=== PATIENT | female | born 1970 | race Hispanic/Latino ===

== ENCOUNTER → 2018-11-05 | Day surgery (SDC) | payer OTHER ==
--- NOTE | 2018-11-04 15:30 | Diagnostic Imaging Report ---
EXAMINATION: CHEST 2 VIEWS INDICATION: Preop for left foot surgery ^MD ORDER ^[id number] ^1510 ^PRE ADMIT COMPARISON: None FINDINGS: TUBES and LINES: None. LUNGS: Lungs are well inflated. Lungs are clear. There is no evidence of pneumonia or pulmonary edema. PLEURA: No pleural effusion or pneumothorax. HEART AND MEDIASTINUM: The cardiomediastinal silhouette is unremarkable. BONES AND SOFT TISSUES: No acute osseous lesion. Soft tissues are unremarkable. UPPER ABDOMEN: No free air under the diaphragm. IMPRESSION: No acute thoracic abnormality. Signed by: Dr. Brooks Nelson M.D. on 11/04/2018 3:27 PM
[~2018-11-05] MED LIST: ACETAMINOPHEN 1000 MG/100 ML 100 ML IV ONE; BUPIVACAINE HCL 0.5% INJ 30 ML VIAL INJ ONE; CEFAZOLIN SOD 1 GM/NS 50ML 50 ML IV ONE; DEXAMETHASONE SOD PHOS INJ 4 MG/ML VIAL ONE; FENTANYL CITRATE/PF 100MCG/2 ML INJ ONE; KETOROLAC TROMETHAMINE 30 MG/ML VIAL ONE; LIDOCAINE HCL 2% LOCAL INJ 5 ML SDV VIAL INJ ONE; MIDAZOLAM HCL 2 MG/2 ML VIAL ONE; NAPROXEN250 MG PO; PROPOFOL IV EMULSION 10 MG/ML 20 ML VIAL ONE; SEVOFLURANE INHAL SOLN 250 ML PEN BTL ONE
--- OUTSIDE RECORDS SUMMARY | 2018-11-05 05:08 | XMS REPORT ---
Author Author [facility] Address Unknown Phone Unavailable Care Team Providers Care Quality Assurance Director Name Role Phone Giovanna GAMINO Unavailable Unavailable Problems This patient has no known problems. Allergies, Adverse Reactions, Alerts This patient has no known allergies or adverse reactions. Medications This patient has no known medications. Results Test Description Test Time Test Comments Text Results Atomic Results Result Comments CHEST 2 VIEWS 2018-11-04 15:27:00 [place] [id number] Patient Name: BOOKER WARD MR #: [id number] : 1970 Age/Sex: 48/F Req #: [id number] Adm Physician: Ordered by: Giovanna GAMINO DPM Report #: [id number] Location: OR Room/Bed: Procedure: [id number] DX/CHEST 2 VIEWS Exam Date: 11/04/18 Exam Time: 1510 REPORT STATUS: Signed EXAMINATION: CHEST 2 VIEWS INDICATION: Preop for left foot surgery MD ORDER [id number] 1510 PRE ADMIT COMPARISON: None FINDINGS: TUBES and LINES: None. LUNGS: Lungs are well inflated. Lungs are clear. There is no evidence of pneumonia or pulmonary edema. PLEURA: No pleural effusion or pneumothorax. HEART AND MEDIASTINUM: The cardiomediastinal silhouette is unremarkable. BONES AND SOFT TISSUES: No acute osseous lesion. Soft tissues are unremarkable. UPPER ABDOMEN: No free air under the diaphragm. IMPRESSION: No acute thoracic abnormality. Signed by: Dr. Brooks Nelson M.D. on 11/04/2018 3:27 PM Dictated By: BROOKS NELSON MD, MD 1527 Transcribed By: MADELAINE on 11/04/18 152 COPY TO: Giovanna GAMINO DPM
[2018-11-05 09:15] VITALS: BP 148/96
--- NOTE | 2018-11-05 11:30 | Operative Report ---
DATE OF PROCEDURE: 11/05/2018 SURGEON: Jacques Cruz DPM PREOPERATIVE DIAGNOSES: 1. Left hallux valgus. 2. Left heel spur with plantar fasciitis. POSTOPERATIVE DIAGNOSES: 1. Left hallux valgus. 2. Left heel spur with plantar fasciitis. PLANNED PROCEDURE: 1. Left Mingo bunionectomy with 1st metatarsal osteotomy and internal fixation. 2. Excision of heel spur with plantar fasciotomy. SURGEON: Melissa Cedeno DPM (Charley). FINISH MIXER: Jacques Cruz DPM. ANESTHESIA: General with a postoperative block consisting of 20 mL 0.5% Marcaine plain mixed with 2 mL of dexamethasone phosphate. HEMOSTASIS: Pneumatic thigh tourniquet set at 350 mmHg for a total time approximately 45 minutes. MATERIALS: Two 2.0 mm cortical bone screws, one measuring 12 mm, one measuring 14 mm 2-0 Vicryl, 3-0 Vicryl, 4-0 Prolene. ESTIMATED BLOOD LOSS: Less than 10 mL. PATHOLOGY: None. PROCEDURE NOTE: The patient was seen in the preop waiting room, where the correct procedure and site was identified. The patient was brought to the operating room, placed on the operating table in the supine position. General anesthesia was initiated. At this time, a well-padded pneumatic tourniquet was placed about the patient's left thigh. The left foot, ankle, and leg were then scrubbed, prepped, and draped in the usual aseptic manner. The left foot, ankle, and leg were exsanguinated with an Esmarch bandage and the pneumatic thigh tourniquet was inflated to 350 mmHg for a total time of approximately 45 minutes. Attention was directed to the dorsal medial aspect of the patient's left foot 1st metatarsophalangeal joint where a 5 cm curvilinear incision was made directly over the joint. It was medial to the extensor hallucis longus tendon. Incision was carried through the subcutaneous tissue, it from deeper underlying structures. All vital neurovascular structures were identified, retracted medially and laterally, and all bleeders were cauterized or ligated as deemed necessary. Next, through the same incision a full lateral release was performed consisting of the deep transverse metatarsal ligament, lateral collateral ligament as well as the fibular sesamoidal ligament. The hallux was then put through range of motion, found to be functioning in a more proper anatomic alignment. Next, attention was directed to the back of the 1st metatarsal head where an inverted-L capsulotomy was performed to allow for good visualization of the 1st metatarsal head. Next, utilizing a guidewire placed medial to lateral, Chevron osteotomy was performed with a dorsal wing longer to allow for proper fixation. The capital fragment was transposed laterally approximately 3 to 5 mm and impacted onto the shaft of the 1st metatarsal. It was temporarily fixated with a guidewire, permanently fixated utilizing techniques of AO fixation with two 2.0 mm bone screws, one measuring 12 mm, one measuring 14 mm. The wound was then flushed with copious amounts of sterile saline. Capsule and deep tissue were reapproximated with 2-0 Vicryl, subcutaneous tissue with 3-0 Vicryl. The skin was closed using a running interlocking stitch with 4-0 Prolene. The attention was then directed to the medial aspect of the patient's left heel where a 4 cm linear incision was made directly over the plantar heel spur medially. Incision was carried through the subcutaneous tissue, them from deep or underlying structures. Utilizing a Metzenbaum scissors, the plantar fascia was identified dorsally and plantarly and cut approximately 1/[address] The dissection was carried down to allow for good visualization of the bone spur. Utilizing osteotome and mallet rongeur and a rasp, the bone spur was excised and smoothed with anatomical alignment. This was confirmed via intraoperative fluoroscopy. The wound was then flushed with copious amounts of sterile saline. Subcutaneous tissue was reapproximated with 3-0 Vicryl and the skin was reapproximated utilizing simple interrupted sutures with 4-0 Prolene. Both incision sites were dressed with Adaptic, 4x4s, Kerlix, David wrap, Unna boots and postop shoe. The patient tolerated the procedure and anesthesia well. The patient was transferred to the postoperative recovery room with vital signs stable and vascular status intact. The patient was sent to the postop recovery room with vital signs stable and vascular status intact. The patient was monitored there for a short period of time before being discharged to home with the following written and oral instructions. 1. Keep the dressing clean, dry, and intact. 2. The patient is to remain nonweightbearing with a postop shoe and to avoid any ambulation until being seen in the office. 3. The patient was given the office number to try to contact us if any problems arise. ASH Knowles/DACIA /[id number]
== END | disposition home or self-care (01) ==
LOC: OR 05:00
PROVIDERS: ATTEND Podiatrist Foot & Ankle Surgery
DX: M20.12 Hallux valgus (acquired), left foot (principal); M77.32 Calcaneal spur, left foot; M72.2 Plantar fascial fibromatosis; Z01.810 Encounter for preprocedural cardiovascular examination; Z01.818 Encounter for other preprocedural examination
CPT/HCPCS: 28119; 28296; 71046; 81025; 93005; C1713 ×3; J0131; J0690; J1100; J1885; J2001; J2250; J2704

== ENCOUNTER → 2020-05-21 | Day surgery (SDC) | payer OTHER ==
[2020-05-18 10:20] LABS: BASOPHILS # (AUTO) 0.1 (0.0-0.1); BASOPHILS % 0.9 % (0.0-1.0); EOSINOPHILS # (AUTO) 0.1 (0.0-0.4); EOSINOPHILS % 2.1 % (0.0-6.0); HEMOGLOBIN 13.4 g/dL (12.0-16.0); LYMPHOCYTES # (AUTO) 1.9 (1.0-3.2); LYMPHOCYTES % 33.7 % (18.0-39.1); MEAN CORPUSCULAR HEMOGLOBIN 26.8 pg (28-32); MEAN CORPUSCULAR HGB CONC 31.9 g/dL (31-35); MONOCYTES # (AUTO) 0.5 (0.2-0.8); MONOCYTES % 8.4 % (4.4-11.3); NEUTROPHILS # (AUTO) 3.1 (2.1-6.9); NEUTROPHILS % 54.7 % (38.7-80.0); PLATELET COUNT 209 x10e3/uL (140-360); RED CELL DISTRIBUTION WIDTH 16.4 % (11.7-14.4)
[~2020-05-21] MED LIST changes: -ACETAMINOPHEN 1000 MG/100 ML 100 ML IV ONE; +DESFLURANE 240 ML BTL INH ONE; +ONDANSETRON HCL INJ 2MG/ML 2ML 2 MG/ML VIAL ONE; -SEVOFLURANE INHAL SOLN 250 ML PEN BTL ONE
[2020-05-21 08:25] VITALS: BP 133/75
== END | disposition home or self-care (01) ==
LOC: OR 05:23
PROVIDERS: ATTEND Podiatrist Foot & Ankle Surgery
DX: M20.11 Hallux valgus (acquired), right foot (principal); M77.31 Calcaneal spur, right foot; E66.01 Morbid (severe) obesity due to excess calories; Z01.812 Encounter for preprocedural laboratory examination; Z11.59 Encounter for screening for other viral diseases
CPT/HCPCS: 28119; 28296; 36415; 81025; 85025; C1713 ×2; J0690; J1100; J1885; J2001; J2250; J2405; J2704; J3010; U0002